=== PATIENT | male | born 1985 | race Two or more races ===

== ENCOUNTER 2018-08-07 17:04 | Emergency (ER) | payer SELFPAY ==
[2018-08-07 17:13] VITALS: BP 121/83
--- NOTE | 2018-08-07 18:18 | ER Document Report ---
HPI - HPI Time Seen by Provider: 08/07/18 18:16 Pain Level: Denies Notes: Patient is a 33-year-old male who presents with request for Seroquel. Patient reports that he is in between doctors and is not scheduled to see his new doctor until the end of August. He reports that he has 5 tablets left. He has the bottle with him. Past Medical History - General Information source: Patient - Social History Smoking Status: Never Smoker Frequency of alcohol use: None Drug Abuse: None Lives with: Alone Family History: Reviewed & Not Pertinent Psychiatric Medical History: Reports: Hx Anxiety, Hx Depression Surgical Hx: Negative Vertical Provider Document - CONSTITUTIONAL Notes: PHYSICAL EXAMINATION: GENERAL: Well-appearing, well-nourished and in no acute distress. HEAD: Atraumatic, normocephalic. EYES: Pupils equal round extraocular movements intact, conjunctiva are normal. ENT: Nares patent NECK: Normal range of motion LUNGS: No respiratory distress Musculoskeletal: Normal range of motion NEUROLOGICAL: Normal speech, normal gait. PSYCH: Normal mood, normal affect. SKIN: Warm, Dry, normal turgor, no rashes or lesions noted. - INFECTION CONTROL TRAVEL OUTSIDE OF THE [place] IN LAST 30 DAYS: No Course - Re-evaluation Re-evalutation: Medication refilled for 30 days. Patient encouraged to keep the appointment he has set up with his new primary care provider. - Vital Signs Vital signs: Temp Pulse Resp BP Pulse Ox 98.1 F 79 16 121/83 100 08/07/18 17:12 08/07/18 17:12 08/07/18 17:12 08/07/18 17:12 08/07/18 17:12 Discharge - Discharge Clinical Impression: Medication refill Condition: Stable Disposition: HOME, SELF-CARE Additional Instructions: Your medication was refilled today. Please keep the appointment that you have set up with your primary care provider. Prescriptions: Quetiapine Fumarate [Seroquel 100 mg Tablet] 100 mg PO DAILY #30 tablet Referrals: LOCAL,NO [NO LOCAL MD] - Follow up as needed
== END 2018-08-07 18:20 | disposition home or self-care (01) ==
LOC: ER 17:04
DX: Z76.0 Encounter for issue of repeat prescription (principal)
CPT/HCPCS: 99281

== ENCOUNTER 2018-09-13 13:59 | Emergency (ER) | payer SELFPAY ==
--- NOTE | 2018-09-13 15:07 | ER Document Report ---
HPI - HPI Time Seen by Provider: 09/13/18 14:28 Pain Level: 0 Context: Patient is a 33-year-old male who presents the emergency department with an inquiry about a medication refill. He takes Seroquel daily. He has an appointment with [facility] on September 22 to have his medication refilled, but is out. He states that he has had an inability to sleep for the past 2 days since he has been out of his medication. Patient denies any suicidal or homicidal etiology. - CONSTITUTIONAL Constitutional: DENIES: Fever, Chills - EENT EENT: DENIES: Sore Throat - NEURO Neurology: DENIES: Headache - CARDIOVASCULAR Cardiovascular: DENIES: Chest pain - RESPIRATORY Respiratory: DENIES: Trouble Breathing, Coughing - GASTROINTESTINAL Gastrointestinal: DENIES: Abdominal Pain - MUSCULOSKELETAL Musculoskeletal: DENIES: Extremity pain - DERM Skin Color: Normal Skin Problems: None Past Medical History - General Information source: Patient - Social History Smoking Status: Never Smoker Family History: Reviewed & Not Pertinent Renal/ Medical History: Denies: Hx Peritoneal Dialysis Psychiatric Medical History: Reports: Hx Anxiety, Hx Depression Vertical Provider Document - CONSTITUTIONAL Agree With Documented VS: Yes Exam Limitations: No Limitations - INFECTION CONTROL TRAVEL OUTSIDE OF THE [place] IN LAST 30 DAYS: No - HEENT HEENT: Atraumatic, Normocephalic - NECK Neck: Normal Inspection - RESPIRATORY Respiratory: No Respiratory Distress - CARDIOVASCULAR Cardiovascular: Regular Rate - MUSCULOSKELETAL/EXTREMETIES Musculoskeletal/Extremeties: FROM - NEURO Level of Consciousness: Awake, Alert, Appropriate Motor/Sensory: No Motor Deficit, No Sensory Deficit - DERM Integumentary: Warm, Dry Course - Re-evaluation Re-evalutation: 09/13/18 Patient's medication for Seroquel be refilled. I have instructed him that I will give him enough doses for him to last to his next appointment. Do not suspect patient is for others. Verbal discharge instructions were given to the patient. They verbalized understanding. They are stable for discharge. - Vital Signs Vital signs: Temp Pulse Resp BP Pulse Ox 97.9 F 60 15 115/66 99 09/13/18 14:04 09/13/18 14:04 09/13/18 14:04 09/13/18 14:04 09/13/18 14:04 Discharge - Discharge Clinical Impression: Medication refill Condition: Stable Disposition: HOME, SELF-CARE Additional Instructions: You were seen today in the emergency department to have your Seroquel refilled. You have been given enough to last you until your appointment. Please make sure you let them know that you have had refills here twice in the emergency department. Previous if you feel your mood has changed or have any worrisome symptoms, please return to the emergency department. Prescriptions: Quetiapine Fumarate [Seroquel 100 mg Tablet] 100 mg PO DAILY #10 tablet
[2018-09-13 15:35] VITALS: BP 128/73
== END 2018-09-13 15:30 | disposition home or self-care (01) ==
LOC: ER 13:59
DX: Z76.0 Encounter for issue of repeat prescription (principal); F32.9 Major depressive disorder, single episode, unspecified; T43.596A Underdosing of other antipsychotics and neuroleptics, initial encounter; Z91.128 Patient's intentional underdosing of medication regimen for other reason; Z91.14 Patient's other noncompliance with medication regimen
CPT/HCPCS: 99281

== ENCOUNTER 2018-12-03 19:25 | Emergency (ER) | payer SELFPAY ==
[2018-12-03] MEDS ORDERED: QUETIAPINE FUMARATE 100 MG TABLET PO ONE (22:40)
--- NOTE | 2018-12-03 22:43 | ER Document Report ---
ED General - General Chief Complaint: Medication Refill Stated Complaint: REFILL MEDS Time Seen by Provider: 12/03/18 22:28 Mode of Arrival: Ambulatory Information source: Patient, [facility] Records Notes: 33-year-old male with a history of depression presents with request for a Seroquel refill. Patient states that he has been on of his Seroquel for over 1 week. He states he usually takes 150 mg of extended release and has tried to contact his primary care physician without success. Denies suicidal, homicidal ideation. TRAVEL OUTSIDE OF THE [place] IN LAST 30 DAYS: No - HPI Quality of pain: No pain Severity: None Associated symptoms: None Exacerbated by: Denies Relieved by: Denies Similar symptoms previously: No Recently seen / treated by doctor: No - Related Data Allergies/Adverse Reactions: No Known Allergies Allergy (Verified 09/13/18 14:02) Past Medical History - General Information source: Patient - Social History Smoking Status: Current Every Day Smoker Cigarette use (# per day): Yes - 10 Smoking Education Provided: Yes - Smoking cessation counseling was provided for 4 minutes at the bedside Drug Abuse: None Lives with: Spouse/Significant other Family History: Reviewed & Not Pertinent Patient has suicidal ideation: No Patient has homicidal ideation: No Renal/ Medical History: Denies: Hx Peritoneal Dialysis Psychiatric Medical History: Reports: Hx Anxiety, Hx Depression Past Surgical History: Reports: Hx Oral Surgery - all 4 wisdom teeth Review of Systems - Review of Systems Notes: REVIEW OF SYSTEMS: CONSTITUTIONAL : Denies fever, chills, or sweats. Denies recent illness. Denies weight loss, recent hospitalizations. EENT: Denies visual changes, eye pain. Denies sore throat, oral lesions, difficulty swallowing. CARDIOVASCULAR: Denies chest pain. Denies palpitations. Denies lower extremity edema. RESPIRATORY: Denies cough. Denies shortness of breath, wheezing. GASTROINTESTINAL: Denies abdominal pain or distention. Denies nausea, vomiting, or diarrhea. Denies blood in vomitus, stools, or per rectum. Denies black, tarry stools. Denies constipation. GENITOURINARY: Denies difficulty urinating, painful urination, frequency, blood in urine, testicular pain or penile discharge. MUSCULOSKELETAL: Denies back or neck pain or stiffness. Denies joint pain or swelling. SKIN: Denies rash, lesions or sores. HEMATOLOGIC : Denies easy bruising or bleeding. LYMPHATIC: Denies swollen glands. NEUROLOGICAL: Denies confusion or altered mental status. Denies loss of consciousness. Denies dizziness or lightheadedness. Denies headache. Denies weakness or paralysis. Denies problems difficulty with ambulation, slurred speech. Denies sensory loss, numbness, or tingling. Denies seizures. PSYCHIATRIC: Denies anxiety or stress. Denies depression, suicidal ideation, or Physical Exam - Vital signs Vitals: Temp Pulse Resp BP Pulse Ox 98.7 F 95 16 131/83 H 99 12/03/18 19:57 12/03/18 19:57 12/03/18 19:57 12/03/18 19:57 12/03/18 19:57 - Notes Notes: PHYSICAL EXAMINATION: GENERAL: Well-appearing, well-nourished and in no acute distress. HEAD: Atraumatic, normocephalic. EYES: Pupils equal round and reactive to light, extraocular movements intact, sclera anicteric, conjunctiva are normal. ENT: Nares patent, oropharynx clear without exudates. Moist mucous membranes. NECK: Normal range of motion, supple without lymphadenopathy LUNGS: Breath sounds clear to auscultation bilaterally and equal. No wheezes rales or rhonchi. HEART: Regular rate and rhythm without murmurs ABDOMEN: Soft, nontender, nondistended abdomen. No guarding, no rebound. No masses appreciated. Musculoskeletal: Normal range of motion, no pitting or edema. No cyanosis. NEUROLOGICAL: Cranial nerves grossly intact. Normal speech, normal gait. Normal sensory, motor exams PSYCH: Normal mood, normal affect. SKIN: Warm, Dry, normal turgor, no rashes or lesions noted. Course - Re-evaluation Re-evalutation: 12/04/18 02:29 Temp Pulse Resp BP Pulse Ox 98.0 F 77 18 127/87 H 100 12/03/18 23:01 12/03/18 23:01 12/03/18 23:01 12/03/18 23:01 12/03/18 23:01 33-year-old male with a history of depression presents with request for a Seroquel refill. Patient states that he has been on of his Seroquel for over 1 week. He states he usually takes 150 mg of extended release and has tried to contact his primary care physician without success. Denies suicidal, homicidal ideation. Patient did receive 150 mg of Seroquel in the emergency department and was provided a prescription for Seroquel 150 mg extended release. Patient was evaluated and treated as appropriate for the patient's presenting symptoms and complaint, with consideration of any critical or life threatening conditions that may be associated with their obtained history and exam as noted above. All results were discussed with patient. Patient provided the opportunity to ask questions, and express concerns. Patient was educated on treatments based on their presumed diagnosis as noted above. At this time we will discharge the patient with return precautions and follow-up recommendations. Verbal discharge instructions given a the bedside. Medication warnings reviewed. Patient is in agreement with this plan and has verbalized understanding of return precautions. After careful consideration I feel that that patient can be safely discharged from the emergency department, they were advised to followup with a primary care physician in 2-3 days. Dictation on this chart was performed using voice recognition software and may result in unintended grammatical, spelling, syntax or errors. - Vital Signs Vital signs: Temp Pulse Resp BP Pulse Ox 98.0 F 77 18 127/87 H 100 12/03/18 23:01 12/03/18 23:01 12/03/18 23:01 12/03/18 23:01 12/03/18 23:01 Discharge - Discharge Clinical Impression: Medication refill Depression Qualifiers: Depression Type: unspecified Qualified Code(s): F32.9 - Major depressive disorder, single episode, unspecified Condition: Good Disposition: HOME, SELF-CARE Instructions: Depression ([facility]) Additional Instructions: Follow up with your [id number] hours for further care or return to the ED IMMEDIATELY if symptoms worsen or you have any concerns. If you cannot afford to follow up with your primary care physician a list of low cost clinics have been provided at the end of your discharge papers as well. Most prescribed medications have multiple side effects. The safest thing to do is when filling your prescription speak to your pharmacist regarding possible interactions with your normal home medications and over the counter medications such as Ibuprofen, Tylenol, Benadryl. If you experience any symptoms that cause you discomfort or concern you should discontinue the medication immediately and return to the emergency room or call your primary care physician. Prescriptions: Quetiapine Fumarate [Seroquel Xr] 150 mg PO DAILY #30 tab.er.24h Forms: Elevated Blood Pressure
[2018-12-03 23:02] VITALS: BP 127/87
== END 2018-12-03 23:09 | disposition home or self-care (01) ==
LOC: ER 19:25
DX: Z76.0 Encounter for issue of repeat prescription (principal); F32.9 Major depressive disorder, single episode, unspecified; F17.210 Nicotine dependence, cigarettes, uncomplicated
CPT/HCPCS: 99281; 99406

== ENCOUNTER 2019-06-29 07:04 | Emergency (ER) | payer SELFPAY ==
[2019-06-29 07:16] VITALS: BP 123/80
== END 2019-06-29 09:10 | disposition left against medical advice (07) ==
LOC: ER 07:04
DX: Z53.21 Procedure and treatment not carried out due to patient leaving prior to being seen by health care provider (principal)

== ENCOUNTER 2020-03-13 13:40 | Emergency (ER) | payer SELFPAY ==
[2020-03-13 14:03] VITALS: BP 125/74
--- NOTE | 2020-03-13 14:37 | ER Document Report ---
HPI - HPI Time Seen by Provider: 03/13/20 14:33 Pain Level: Denies Context: Patient presents requesting a refill of his psychiatric medication. Patient states he ran out of his medicine 5 days ago. Patient states he does have an appointment with the mental health provider in 5 days. Patient denies any suicidal or homicidal ideation. Patient states he has been on a stable dose for about 3 years. Exacerbated by: Denies Relieved by: Denies Similar symptoms previously: Yes Recently seen / treated by doctor: No - ROS ROS below otherwise negative: Yes Systems Reviewed and Negative: Yes All other systems reviewed and negative - NEURO Neurology: DENIES: Headache, Weakness - GASTROINTESTINAL Gastrointestinal: DENIES: Nausea, Patient vomiting - DERM Skin Color: Normal Skin Problems: None Past Medical History - General Information source: Patient - Social History Smoking Status: Current Some Day Smoker Frequency of alcohol use: None Drug Abuse: None Family History: Reviewed & Not Pertinent Patient has homicidal ideation: No Renal/ Medical History: Denies: Hx Peritoneal Dialysis Psychiatric Medical History: Reports: Hx Anxiety, Hx Depression Past Surgical History: Reports: Hx Oral Surgery - all 4 wisdom teeth Vertical Provider Document - CONSTITUTIONAL Agree With Documented VS: Yes Exam Limitations: No Limitations General Appearance: WD/WN, No Apparent Distress - INFECTION CONTROL TRAVEL OUTSIDE OF THE [place] IN LAST 30 DAYS: No - HEENT HEENT: Atraumatic, Normocephalic - NECK Neck: Normal Inspection, Supple - RESPIRATORY Respiratory: Breath Sounds Normal, No Respiratory Distress - CARDIOVASCULAR Cardiovascular: Regular Rate, Regular Rhythm - MUSCULOSKELETAL/EXTREMETIES Musculoskeletal/Extremeties: MAEW - NEURO Level of Consciousness: Awake, Alert, Appropriate Motor/Sensory: No Motor Deficit - DERM Integumentary: Warm, Dry, No Rash Course - Re-evaluation Re-evalutation: 03/13/20 14:34 Patient advised that the emergency department does not refill chronic medications and that this is better served by a primary doctor or mental health professional. Patient states that he has been here 3 other times and had his meds refilled therefore thought he could get them refilled again today. Patient advised that a short course of medicine would be to bridge till he gets to his appointment. Patient denies any suicidal homicidal ideation and is stable for discharge at this time. - Vital Signs Vital signs: Temp Pulse Resp BP Pulse Ox 98.3 F 56 L 16 125/74 99 03/13/20 14:01 03/13/20 14:01 03/13/20 14:01 03/13/20 14:01 03/13/20 14:01 Discharge - Discharge Clinical Impression: History of depression, Medication refill Condition: Stable Disposition: HOME, SELF-CARE Additional Instructions: Return immediately for any new or worsening symptoms Followup with your primary care provider, call tomorrow to make a followup appointment Follow-up with your mental health professional for refills of your medications. Prescriptions: Benztropine Mesylate [Cogentin 1 mg Tablet] 0.5 mg PO QHS #15 tablet Quetiapine Fumarate [Seroquel Xr] 200 mg PO QHS #15 tab.er.24h Referrals: [facility] [Provider Group] - 03/17/20
== END 2020-03-13 14:50 | disposition home or self-care (01) ==
LOC: ER 13:40
DX: Z76.0 Encounter for issue of repeat prescription (principal); F32.9 Major depressive disorder, single episode, unspecified; F17.200 Nicotine dependence, unspecified, uncomplicated
CPT/HCPCS: 99281